=== PATIENT | female | born 1990 | race African-American/Black ===

== ENCOUNTER 2022-01-11 08:09 | Emergency (ER) | payer OTHER, SELFPAY ==
--- NOTE | ~2022-01-11 | XR_ITS ---
EXAMINATION: XR chest 2V DATE: 01/11/2022 08:39 INDICATION: Chest pain. TECHNIQUE: Frontal and lateral views of the chest were obtained. COMPARISON: None. FINDINGS: The chest demonstrates clear lungs without pneumonia, pleural effusion, or pneumothorax. Th e heart size is normal. IMPRESSION: 1. No acute cardiopulmonary disease. Reviewed, dictated and finalized at location [facility].
[2022-01-11 08:15] VITALS: BP 148/96; PULSE 123; RESP 15; TEMP 37; O2SAT 100
--- NOTE | 2022-01-11 08:18 | ECG_ITS ---
Measurements Intervals [place] Rate: 100 P: 14 IA: 122 QRS: 36 QRSD: 77 T: -2 QT: 334 QTc: 432 Interpretive Statements SINUS TACHYCARDIA NONSPECIFIC T-WAVE ABNORMALITY ABNORMAL ECG NO PREVIOUS ECG AVAILABLE FOR COMPARISON Electronically Signed On 01-11-2022 10:32:06 CDT by Parminder Membreno M.D.
[2022-01-11 08:19] VITALS: PULSE 120
[2022-01-11 08:37] LABS: Basophils Percent Auto 0.4 % (0.2-1.2); Eosinophils Percent Auto 0.1 % (0-4.4); Hematocrit 35.5 % (37.0-47.0); Hemoglobin 11.7 g/dL (12.0-15.0); Immature Granulocyte Absolute 0.02 K/mm3 (0.00-0.031); Immature Granulocyte Percent A 0.2 % (0-0.5); Lymphocytes Absolute Auto 1.03 K/mm3 (0.9-3.2); Lymphocytes Percent Auto 10.5 % (18.3-44.2); Mean Corpuscular Hemoglobin 31.2 pg (26-34); Mean Corpuscular Volume 94.7 fl (80-100); Mean Platelet Volume 9.5 fl (7.4-10.4); Monocytes Absolute Auto 0.4 K/mm3 (0.1-0.6); Monocytes Percent Auto 3.8 % (2.6-8.5); Neutrophils Absolute Auto 8.3 K/mm3 (1.3-6.7); Platelet Count Result 322 k/mm3 (150-375); Red Blood Count 3.75 M/mm3 (4.2-5.4); Red Cell Distribution Width 12.5 % (11.5-14.5); White Blood Count 9.8 K/mm3 (4.5-10.0)
[2022-01-11 08:42] LABS: Appearance Urine Clear (Clear); Bilirubin Urine Negative (Negative); Blood Urine Negative (Negative); Color Urine Yellow (Yellow); Glucose Urine UA Negative (Negative); Ketones Urine Negative (Negative); Leukocyte Esterase Ur Negative LEU/UL (Negative); Nitrate Urine Negative (Negative); Protein Urine Trace mg/dL (Negative); Urobilinogen Urine 0.2 mg/dL (<2.0); pH Urine 6.5 (5.0-9.0)
[2022-01-11 08:47] LABS: Add Urine Microscopic? YES; Bacteria Urine Trace /hpf; Mucus Urine Rare /lpf; RBC Urine 0-2 /hpf (0-2); Squamous Epithelial Cell Urine Few /hpf (Few); WBC Urine 0-3 /hpf
[2022-01-11 08:47] LABS: Alanine Aminotransferase 15 U/L (6-35); Albumin Level 4.2 g/dL (3.5-5.1); Alkaline Phosphatase 55 U/L (38-126); Anion Gap 6 mmol/L (8-16); Aspartate Amino Transferase 19 U/L (14-36); Bilirubin,Total 0.1 mg/dL (0.2-1.3); Blood Urea Nitrogen 9 mg/dL (7-17); Calcium 8.6 mg/dL (8.4-10.2); Carbon Dioxide 24 mmol/L (22-30); Chloride 109 mmol/L (98-107); Estimated CRCL calculation 139 ml/min; Estimated Glomerular Filt Rate > 60; Glucose 112 mg/dL (65-110); Potassium 3.9 mmol/L (3.4-5.0); Sodium 139 mmol/L (137-145)
[2022-01-11 08:57] LABS: Amphetamine Screen Urine Negative (Negative); Barbiturate Screen Urine Negative (Negative); Benzodiazepines Screen Urine Negative (Negative); Cannabinoid Screen Urine Positive (Negative); Cocaine Screen Urine Negative (Negative); Methadone Screen Urine Negative (Negative); Opiate Screen Urine Negative (Negative); Phencyclidine Screen Urine Negative (Negative)
[2022-01-11 09:01] VITALS: BP 123/75; PULSE 95; RESP 18; O2SAT 100
[2022-01-11] MEDS: ACETAMINOPHEN 325 MG TABLET 650 MG PO (09:01)
[2022-01-11 09:05] LABS: Troponin I < 0.012 ng/mL (0.000-0.034)
--- NOTE | 2022-01-11 09:29 | ED.GENADULT ---
HPI - General Adult General Chief complaint: Unspecified Stated complaint: CP s/p edible marijuana Time Seen by Provider: 01/11/22 08:16 Source: patient History of Present Illness HPI narrative: Patient presents with chest pain and palpitations. Patient ports she has been trying THC edibles for relaxation. Sometimes when she takes them she gets chest pain and palpitations. She took her Gummies approximately 4 hours ago since then describes right-sided chest pain and palpitations. Current episodes is more severe than her prior episodes so she came into the ER for further evaluation. Pain is achy, constant, no clear aggravating or alleviating factors, no radiation. She also has intermittent palpitations. Given severity of symptoms she was concerned that she may have injured her heart. She reports intermittent shortness of breath. Denies any fevers, cough, congestion, nausea, vomiting. Patient denies recent hospitalizations or surgeries denies prior history of blood clots. Patient denies any family history of cardiac disease. Related Data Allergies Allergy/AdvReac Type Severity Reaction Status Date / Time No Known Allergies Allergy Verified 01/11/22 08:22 Review of Systems Review of Systems: CONSTITUTIONAL: Denies fever, chills, or sweats. EYES: Denies visual changes, redness, or discharge. ENT: Denies rhinorrhea, congestion, sore throat, or otalgia. CARDIOVASCULAR: Reports chest pain palpitations RESPIRATORY: Denies cough or dyspnea. GASTROINTESTINAL: Denies abdominal pain, nausea, vomiting, or diarrhea. GENITOURINARY: Denies dysuria or hematuria. SKIN: Denies rash or itching. MUSCULOSKELETAL: Denies back pain, joint pain, or myalgia. NEUROLOGIC: Denies headache, numbness, dizziness, or weakness. PSYCHIATRIC: Denies anxiety or depression. All systems reviewed & are unremarkable except as noted in HPI and below PMFSH Social History Social History Smoking status: Never smoker Second hand tobacco smoke exposure: No Alcohol intake: current Exam Narrative: GENERAL: Well-appearing, well-nourished, and in no acute distress. HEAD: Normocephalic, atraumatic. EYES: PERRLA and EOMI. ENT: Nares clear, no rhinorrhea or epistaxis. Mucous membranes moist. NECK: Supple. No masses. No JVD CHEST: Clear to auscultation. No respiratory distress. No wheezes rales or rhonchi HEART: Regular tachycardia, no murmur heard. Normal peripheral pulses. ABDOMEN: Soft, nontender, nondistended, normal active bowel sounds. EXTREMITIES: Normal range of motion. No edema. SKIN: Warm, dry, no rash. NEURO: No focal deficits. Alert and oriented x3. PSYCH: Normal mood and affect. Course Reevaluation(s) Reevaluation #1: Patient feeling improved vital signs are improved. Results and plan reviewed with patient. Patient is comfortable outpatient plan. Date: 01/11/22 Time: 09:34 Vital Signs Vital signs: Vital Signs Temperature 37.0 C 01/11/22 08:15 Pulse Rate 123 H 01/11/22 08:15 Respiratory Rate 15 01/11/22 08:15 Blood Pressure 148/96 H 01/11/22 08:15 Pulse Oximetry 100 01/11/22 08:15 Oxygen Delivery Room Air 01/11/22 08:15 Temperature 37.0 C 01/11/22 08:15 Pulse Rate 88 01/11/22 10:19 Respiratory Rate 16 01/11/22 10:19 Blood Pressure 146/94 H 01/11/22 10:19 Pulse Oximetry 100 01/11/22 10:19 Oxygen Delivery Room Air 01/11/22 08:15 Medical Decision Making MDM Narrative Medical decision making narrative: H&P as above, vss, pt looks clinically well, exam reassuring, labs clinically unremarkable, img without acute process, additional labs/img considered, symptomatic relief available as needed, on reevaluation pt continues to looks clinically well. Suspect medication reaction, dns ACS, PE, dissection, pneumothorax. plan to tx/monitor as op w/ pcm f/u findings/plan discussed with pt, pt agree/comfortable with plan, return precautions given Vital
[2022-01-11 10:19] VITALS: BP 146/94; PULSE 88; RESP 16; O2SAT 100
== END 2022-01-11 10:20 | disposition home or self-care (01) ==
PROVIDERS: Emergency Provider Emergency Medicine
DX: R07.9 Chest pain, unspecified (principal); R00.2 Palpitations; T50.905A Adverse effect of unspecified drugs, medicaments and biological substances, initial encounter; R00.0 Tachycardia, unspecified
CPT/HCPCS: 36415; 71046; 80053; 80307; 81001; 84484; 85025; 93005; 96372; 99284; A9270; J1885

== ENCOUNTER 2022-01-11 19:09 | Emergency (ER) | payer OTHER, SELFPAY ==
--- NOTE | 2022-01-11 19:10 | ECG_ITS ---
Measurements Intervals [place] Rate: 92 P: 9 CA: 104 QRS: 45 QRSD: 96 T: 12 QT: 364 QTc: 450 Interpretive Statements SINUS RHYTHM WITH SINUS ARRHYTHMIA WITH SHORT CA INTERVAL COMPARED TO ECG 01/11/2022 08:23:50 SINUS RHYTHM NOW PRESENT SINUS ARRHYTHMIA NOW PRESENT Electronically Signed On 01-12-2022 7:38:16 CDT by Kori Temple MD
--- NOTE | 2022-01-11 19:14 | PC.NURSE ---
per radiology-pt has already had out-pt cxr today. they will cancel one ordered with chest pain protocol
[2022-01-11 19:29] VITALS: BP 153/99; PULSE 73; RESP 16; TEMP 36.9; O2SAT 100
[2022-01-11 19:33] VITALS: PULSE 72; O2SAT 100
[2022-01-11 19:41] VITALS: BP 153/99; PULSE 72; RESP 14; O2SAT 98
--- NOTE | 2022-01-11 19:56 | ED.ANXIETY ---
HPI - Anxiety General Chief Complaint: Chest Pain Stated Complaint: chest pain Time Seen by Provider: 01/11/22 19:15 History of Present Illness HPI narrative: 31-year-old female who was here earlier this morning after she had a bad reaction to adipose presents because she states that she still is feeling uncomfortable, she describes a feeling of chest tightness and palpitations, and she is having trouble calming down and slowing down her breast, and she is feeling cramping and tingling in both hands and feet, as well as some discomfort to her right shoulder. She did try taking some Tylenol at home earlier without any improvement. Related Data Allergies Allergy/AdvReac Type Severity Reaction Status Date / Time No Known Allergies Allergy Verified 01/11/22 08:22 Review of Systems Review of Systems: CONST: No fever. HEENT: No sore throat C/V: Chest tightness RESP: Difficulty breathing GI: Slight nausea : No dysuria. M/S: No joint pain. SKIN: No rash. NEURO: Numbness and tingling in bilateral hands and feet PSYCH: Anxiety PMFSH Past Medical History Medical History (Updated 01/11/22 @ 21:10 by Giovanna Morel MD) Heart palpitations Family History Family History (Updated 01/11/22 @ 19:58 by Giovanna Morel MD) Grandparent Hypertension Social History Social History Smoking status: Never smoker Second hand tobacco smoke exposure: No Alcohol intake: current Exam Narrative: EXAMINATION OF ORGAN SYSTEMS/BODY AREAS: Constitutional: Vital signs per nursing GENERAL: Appears anxious and slightly tearful HEAD: Normal with no signs of head trauma. EYES: EOMI, conjunctiva normal ENT: Hearing grossly intact LUNGS: Tachypnea, clear to auscultation bilaterally HEART: [Regular rate and rhythm] ABD: [Soft], [nontender to palpation] EXT: Normal range of motion, no lower extremity edema or tenderness SKIN: [No rashes or lesions.] NEURO: [Alert and oriented x 3. No focal weakness.] PSYCH: Anxious affect Course Vital Signs Vital signs: Vital Signs Temperature 98.5 F 01/11/22 19:29 Pulse Rate 73 01/11/22 19:29 Respiratory Rate 16 01/11/22 19:29 Blood Pressure 153/99 H 01/11/22 19:29 Pulse Oximetry 100 01/11/22 19:29 Oxygen Delivery Room Air 01/11/22 19:29 Temperature 98.5 F 01/11/22 19:29 Pulse Rate 72 01/11/22 19:41 Respiratory Rate 14 01/11/22 19:41 Blood Pressure 153/99 H 01/11/22 19:41 Pulse Oximetry 98 01/11/22 19:41 Oxygen Delivery Room Air 01/11/22 19:33 MDM - Anxiety MDM Narrative Medical decision making narrative: 31-year-old female for the second time today with anxiety, chest tightness and dyspnea, vital signs normal, exam shows quite anxious appearing patient with otherwise normal cardiopulmonary and neurologic exam, I suspect most likely panic attack, doubt ACS/TX given her age without risk factors, and she did have negative cardiac work-up earlier today, doubt PE as she is PERC negative, doubt pneumothorax with bilateral breath sounds, or pneumonia given normal chest x-ray from this morning. She is given toradol and ativan here with relief of her symptoms but is worried it may start again at home, I did give her scripts for muscle relaxants and hydroxyzine and reassured her she can always return if she feels worse again. Stable for discharge home at this time. Discharge Plan Discharge Clinical Impression: Heart palpitations, Panic attack Patient Disposition: Home, Self-Care Condition: Improved Instructions: Antibiotic Form, Heart Palpitations (DC), Noncardiac Chest Pain (ED), Panic Attack (ED) Additional Instructions: Please followup with your doctor in the next 1-2 days, try taking the medicine for your symptoms. You can always come back if you feel worse. Prescriptions: New hydroxyzine HCl 25 mg tablet 25 mg PO TID PRN (Reason: anxiety) Qty: 30 0RF methocarbamol 750 mg tablet
[2022-01-11] MEDS: LORazepam (*CRX) 1 MG TABLET PO (19:58)
[2022-01-11] MEDS: KETOROLAC 30 MG/ML VIAL (*BKC) IM (20:29)
[2022-01-11 21:32] VITALS: BP 154/88; PULSE 76; RESP 20; O2SAT 100
== END 2022-01-11 21:34 | disposition home or self-care (01) ==
PROVIDERS: Emergency Provider Emergency Medicine
DX: R00.2 Palpitations (principal); F41.0 Panic disorder [episodic paroxysmal anxiety]
CPT/HCPCS: 93005; 96372; 99284; A9270; J1885

== ENCOUNTER 2022-01-30 09:40 | Emergency (ER) | payer OTHER, SELFPAY ==
--- NOTE | ~2022-01-30 | CT_ITS ---
EXAMINATION: CTA chest PE protocol DATE: 01/30/2022 12:09 INDICATION: Shortness of breath since last night TECHNIQUE: Computed tomography angiography (CTA) of the chest was performed with 100 mL Omnipaque-350 intravenous contrast timed to evaluate the pulmonary arteries. Coronal maximum intensity projection 3D-reconstructions were created by the technologist. Automated exposure control and iterative reconst ruction technique were employed. Exam dose: 725.54 mGy-cm total exam DLP. COMPARISON: 01/30/2022 2 view chest FINDINGS: There is diagnostic contrast enhancement of the pulmonary arteries and no evidence of pulmo nary embolism. No thoracic aortic aneurysm or dissection. Normal heart size. No pericardial or pleural effusion. No hilar or mediastinal mass lesion or lymphadenopathy. Diffuse hepatic steatosis. The adrenal glands are normal. Small sliding hiatal hernia. The lungs are clear of infiltrate or consolidation. Included skeletal structures are unremarkable. IMPRESSION: No evidence of pulmonary embolism Hepatic steatosis Reviewed, dictated and finalized at [facility]. Reviewed, dictated and finalized at location A.
--- NOTE | ~2022-01-30 | XR_ITS ---
XR chest 2V DATE: 01/30/2022 10:10 INDICATION: Shortness of breath TECHNIQUE: PA and lateral views COMPARISON: 01/11/2022 PA and lateral chest FINDINGS: Normal heart size. No hilar or mediastinal enlargement. No pulmonary infiltrate or consolid ation, pleural effusion or pulmonary vascular congestion or pneumothorax is detected. Mild levoscoliosis of the thoracic spine. IMPRESSION: No active cardiopulmonary disease Reviewed, dictated and finalized at location A.
--- NOTE | 2022-01-30 09:43 | ECG_ITS ---
Measurements Intervals [place] Rate: 108 P: 61 W[place]: 120 QRS: 63 QRSD: 77 T: 41 QT: 324 QTc: 435 Interpretive Statements SINUS TACHYCARDIA MINIMAL Q WAVES- ANTEROLAT/INF LEADS BASELINE ARTIFACT- I, AVR, AVL, AVF, V5 ABNORMAL ECG Electronically Signed On 01-30-2022 15:13:23 CDT by Willie Campos D.O.
[2022-01-30 09:53] VITALS: BP 136/98; PULSE 120; RESP 20; TEMP 36.3; O2SAT 99
[2022-01-30 10:00] LABS: Basophils Percent Auto 0.4 % (0.2-1.2); Eosinophils Percent Auto 0.4 % (0-4.4); Hematocrit 38.6 % (37.0-47.0); Hemoglobin 13.4 g/dL (12.0-15.0); Immature Granulocyte Absolute 0.02 K/mm3 (0.00-0.031); Immature Granulocyte Percent A 0.3 % (0-0.5); Lymphocytes Absolute Auto 2.44 K/mm3 (0.9-3.2); Lymphocytes Percent Auto 32.8 % (18.3-44.2); Mean Corpuscular HGB Conc 34.7 g/dl (32-36); Mean Corpuscular Hemoglobin 31.7 pg (26-34); Mean Corpuscular Volume 91.3 fl (80-100); Mean Platelet Volume 9.8 fl (7.4-10.4); Monocytes Absolute Auto 0.4 K/mm3 (0.1-0.6); Monocytes Percent Auto 5.4 % (2.6-8.5); Neutrophils Absolute Auto 4.5 K/mm3 (1.3-6.7); Neutrophils Percent Auto 60.7 % (45.5-73.1); Platelet Count Result 383 k/mm3 (150-375); Red Blood Count 4.23 M/mm3 (4.2-5.4); Red Cell Distribution Width 12.4 % (11.5-14.5); White Blood Count 7.4 K/mm3 (4.5-10.0)
[2022-01-30 10:10] LABS: Alanine Aminotransferase 21 U/L (6-35); Albumin Level 4.7 g/dL (3.5-5.1); Alkaline Phosphatase 56 U/L (38-126); Anion Gap 9 mmol/L (8-16); Aspartate Amino Transferase 23 U/L (14-36); Bilirubin,Total 0.2 mg/dL (0.2-1.3); Blood Urea Nitrogen 4 mg/dL (7-17); Calcium 9.2 mg/dL (8.4-10.2); Carbon Dioxide 20 mmol/L (22-30); Chloride 110 mmol/L (98-107); Estimated CRCL calculation 107 ml/min; Estimated Glomerular Filt Rate > 60; Glucose 127 mg/dL (65-110); Potassium 3.4 mmol/L (3.4-5.0); Sodium 139 mmol/L (137-145)
[2022-01-30 10:45] VITALS: BP 148/72; PULSE 86; RESP 18; O2SAT 99
--- NOTE | 2022-01-30 11:35 | ED.SOB ---
HPI - SOB/Dyspnea General Chief Complaint: Shortness of Breath/Dyspnea Stated Complaint: SOB Time Seen by Provider: 01/30/22 11:22 History of Present Illness HPI Narrative: pt returns, she was here 01/11/22 for anxiety sob after eating edibles w/u neg hr up and went home has f/u coming up wiht primary in a month but still having episodes and no more edibles and taking muscle relaxer and hydroxizine which was prescribed and still episodes with facial numbness hr racing and taking home covid test had exposure neg but concerned about this and also says concerned if something else is going on. I reviewed old records given pt has bcp no smoking and not sure if past family h/o dvt's will w/u for pe that wasn't done or thyroid not tested either and add covid, troponin and mag levels with cta. pt fine with this otherwise her home tests are still positive or marijuana she states which I explained will be for at least a month and needs primary f/u for anxiety says less stress in life with new job so ? meds for anxiety vs all just from the edibles if testing neg Related Data Allergies Allergy/AdvReac Type Severity Reaction Status Date / Time No Known Allergies Allergy Verified 01/11/22 08:22 Review of Systems Constitutional: Comments: CONSTITUTIONAL: Denies fever, chills, or sweats. EYES: Denies visual changes, redness, or discharge. ENT: Denies rhinorrhea, congestion, sore throat, or otalgia. CARDIOVASCULAR: Denies chest pain, palpitations, or edema. RESPIRATORY: Denies cough has dyspnea. GASTROINTESTINAL: Denies abdominal pain, nausea, vomiting, or diarrhea. GENITOURINARY: Denies dysuria or hematuria. SKIN: Denies rash or itching. MUSCULOSKELETAL: Denies back pain, joint pain, or myalgia. NEUROLOGIC: Denies headache, has numbness on face, no weakness. PSYCHIATRIC: has anxiety no depression. [facility] Past Medical History Medical History (Updated 01/30/22 @ 13:06 by Vicky Lozano MD) Heart palpitations Family History Family History (Updated 01/11/22 @ 19:58 by Giovanna Morel MD) Grandparent Hypertension Social History Social History Smoking status: Never smoker Second hand tobacco smoke exposure: No Alcohol intake: current Exam Const: Other: APPEARANCE: Well appearing, no pain in distress, well-nourished. obese Head normocephalic atraumtaic. EYES: PERRLA/EOMI, conjunctivae very clear. NOSE: Normal no drainage EARS:TMS clear Jonathan Heller, with good light reflex. THROAT: Pharynx clear, no exudate. NECK: Supple. No adenopathy, no masses. RESPIRATORY: Airway patent, repsirations nonlabored. Clear to auscultation bilaterally, no rales, rhonchi, wheezing. CARDIOVASCULAR: Regular rate and rhythm without murmurs rubs or gallops. ABDOMINAL: Soft, nontender, nondistended, no hepatosplenomegally MUSCULOSKELETAl: Moves all extremities. Strenght/ROM intact, No edema, No calf tenderness. NEURO: Alert. Cranial nerves II through XII intact. Good gait. Good coordination SKIN:: Warm, dry. Normal Color PSYCHIATRIC: Normal affect/mood, normal interaction with parents. Course Course Emergency Course: talked to pt at length about f/u with scheduled appt for chronic anxiety meds adn further outpt w/u given w/u all neg Vital Signs Vital signs: Vital Signs Temperature 36.3 C L 01/30/22 09:53 Pulse Rate 120 H 01/30/22 09:53 Respiratory Rate 20 01/30/22 09:53 Blood Pressure 136/98 H 01/30/22 09:53 Pulse Oximetry 99 01/30/22 09:53 Oxygen Delivery Room Air 01/30/22 09:53 Temperature 36.3 C L 01/30/22 09:53 Pulse Rate 86 01/30/22 10:45 Respiratory Rate 18 01/30/22 10:45 Blood Pressure 148/72 H 01/30/22 10:45 Pulse Oximetry 99 01/30/22 10:45 Oxygen Delivery Room Air 01/30/22 09:53 MDM - SOB/Dyspnea Lab Data Result diagrams: 01/30/22 09:54 01/30/22 09:54 Labs: Lab Results 01/30/22 01/30/22 01/30/22 Range/Units
[2022-01-30 11:58] LABS: INR 1.1
[2022-01-30 11:59] LABS: Partial Thromboplastin Time 27.5 SECONDS (22.3-36.8)
[2022-01-30 12:07] LABS: NT Pro B Type Natriuretic Pept 59 pg/mL (5-100); Troponin I < 0.012 ng/mL (0.000-0.034)
[2022-01-30 12:24] LABS: SARS-CoV-2 RNA PCR Negative
[2022-01-30 13:15] VITALS: BP 132/68; PULSE 76; RESP 18; O2SAT 99
== END 2022-01-30 13:16 | disposition home or self-care (01) ==
PROVIDERS: Emergency Provider Emergency Medicine
DX: F41.9 Anxiety disorder, unspecified (principal); R06.02 Shortness of breath; Z20.822 Contact with and (suspected) exposure to COVID-19
CPT/HCPCS: 36415; 71046; 71275; 80053; 83735; 83880; 84443; 84484; 85025; 85610; 85730; 93005; 99284; C9803; Q9967; U0003; U0005

== ENCOUNTER 2022-02-06 01:27 | Emergency (ER) | payer OTHER, SELFPAY ==
--- NOTE | ~2022-02-06 | XR_ITS ---
EXAMINATION: XR chest 2V DATE: 02/06/2022 04:03 INDICATION: Dyspnea. TECHNIQUE: Frontal and lateral views of the chest were obtained. COMPARISON: Chest 2 views 01/30/2022, chest CT 01/30/2022 FINDINGS: The chest demonstrates clear lungs without pneumonia, pleural effusion, or pneumothorax. Th e heart size is normal. IMPRESSION: 1. No acute cardiopulmonary disease. Reviewed, dictated and finalized at location A.
[2022-02-06 01:30] VITALS: BP 134/93; PULSE 84; RESP 20; TEMP 36.6; O2SAT 100
--- NOTE | 2022-02-06 03:00 | ED.GENADULT ---
HPI - General Adult General Chief complaint: Unspecified Stated complaint: hot flashes since on new meds Time Seen by Provider: 02/06/22 02:38 Source: patient History of Present Illness HPI narrative: Patient presents to the ER with concerns of hot flashes and medication reaction. Patient reports she been seen in the ER multiple times for reaction to edibles as well as anxiety. Follow-up with her primary care doctor on was started on new medications control pills, metformin, propranolol, paroxetine. Reports she has been taking those medications however is noted hot flashes describes sensation of reflux in her chest that radiates up into her neck and face and then she feels warm and occasionally has nausea. Also reports when this episode happens her feet gets cold she is concerned so she came to the ER for evaluation. Patient ports right now she is feeling well denies any active chest pain shortness of breath nausea vomiting or diarrhea. Related Data Home Medications Medication Instructions Recorded Confirmed desogestrel 0.15 mg-ethinyl tablet 02/06/22 estradiol 0.03 mg tablet (Apri) metformin 500 mg tablet tablet 02/06/22 paroxetine HCl 10 mg tablet tablet PO 02/06/22 propranolol 10 mg tablet tablet 02/06/22 Allergies Allergy/AdvReac Type Severity Reaction Status Date / Time No Known Allergies Allergy Verified 02/06/22 03:21 Review of Systems Review of Systems: CONSTITUTIONAL: Denies fever, chills, or sweats. EYES: Denies visual changes, redness, or discharge. ENT: Denies rhinorrhea, congestion, sore throat, or otalgia. CARDIOVASCULAR: Denies chest pain, palpitations, or edema. RESPIRATORY: Denies cough or dyspnea. GASTROINTESTINAL: Denies abdominal pain, nausea, vomiting, or diarrhea. GENITOURINARY: Denies dysuria or hematuria. SKIN: Denies rash or itching. MUSCULOSKELETAL: Denies back pain, joint pain, or myalgia. NEUROLOGIC: Denies headache, numbness, dizziness, or weakness. PSYCHIATRIC: Denies anxiety or depression. All systems reviewed & are unremarkable except as noted in HPI and below PMFSH Past Medical History Medical History Heart palpitations Family History Family History Grandparent Hypertension Social History Social History Smoking status: Never smoker Second hand tobacco smoke exposure: No Alcohol intake: current Exam Narrative: GENERAL: Well-appearing, well-nourished, and in no acute distress. HEAD: Normocephalic, atraumatic. EYES: PERRLA and EOMI. ENT: Nares clear, no rhinorrhea or epistaxis. Mucous membranes moist. NECK: Supple. No masses. No JVD CHEST: Clear to auscultation. No respiratory distress. No wheezes rales or rhonchi HEART: Regular rate and rhythm. No murmur heard. Normal peripheral pulses. ABDOMEN: Soft, nontender, nondistended, normal active bowel sounds. EXTREMITIES: Normal range of motion. No edema. SKIN: Warm, dry, no rash. NEURO: No focal deficits. Alert and oriented x3. PSYCH: Normal mood and affect. Course Reevaluation(s) Reevaluation #1: Patient resting comfortably results and plan reviewed with patient. Patient is comfortable outpatient plan. Date: 02/06/22 Time: 04:08 Vital Signs Vital signs: Vital Signs Temperature 36.6 C 02/06/22 01:30 Pulse Rate 84 02/06/22 01:30 Respiratory Rate 20 02/06/22 01:30 Blood Pressure 134/93 H 02/06/22 01:30 Pulse Oximetry 100 02/06/22 01:30 Oxygen Delivery Room Air 02/06/22 01:30 Temperature 36.6 C 02/06/22 01:30 Pulse Rate 77 02/06/22 03:22 Respiratory Rate 18 02/06/22 03:22 Blood Pressure 116/80 02/06/22 03:22 Pulse Oximetry 98 02/06/22 03:22 Oxygen Delivery Room Air 02/06/22 01:30 Medical Decision Making MDM Narrative Medical decision making narrative: H&P as above, vss, pt loo
[2022-02-06 03:08] LABS: Basophils Percent Auto 0.5 % (0.2-1.2); Eosinophils Absolute Auto 0.1 K/mm3 (0-0.3); Eosinophils Percent Auto 0.8 % (0-4.4); Hematocrit 40.1 % (37.0-47.0); Hemoglobin 13.3 g/dL (12.0-15.0); Immature Granulocyte Absolute 0.02 K/mm3 (0.00-0.031); Immature Granulocyte Percent A 0.3 % (0-0.5); Lymphocytes Absolute Auto 2.44 K/mm3 (0.9-3.2); Mean Corpuscular HGB Conc 33.2 g/dl (32-36); Mean Corpuscular Hemoglobin 30.8 pg (26-34); Mean Corpuscular Volume 92.8 fl (80-100); Mean Platelet Volume 9.9 fl (7.4-10.4); Monocytes Absolute Auto 0.4 K/mm3 (0.1-0.6); Monocytes Percent Auto 5.8 % (2.6-8.5); Neutrophils Absolute Auto 4.6 K/mm3 (1.3-6.7); Neutrophils Percent Auto 60.6 % (45.5-73.1); Platelet Count Result 347 k/mm3 (150-375); Red Blood Count 4.32 M/mm3 (4.2-5.4); Red Cell Distribution Width 11.9 % (11.5-14.5); White Blood Count 7.6 K/mm3 (4.5-10.0)
[2022-02-06 03:22] VITALS: BP 116/80; PULSE 77; RESP 18; O2SAT 98
[2022-02-06 03:24] LABS: Alanine Aminotransferase 36 U/L (6-35); Albumin Level 4.7 g/dL (3.5-5.1); Alkaline Phosphatase 52 U/L (38-126); Anion Gap 11 mmol/L (8-16); Aspartate Amino Transferase 28 U/L (14-36); Bilirubin,Total 0.3 mg/dL (0.2-1.3); Blood Urea Nitrogen 8 mg/dL (7-17); Calcium 9.2 mg/dL (8.4-10.2); Carbon Dioxide 23 mmol/L (22-30); Chloride 103 mmol/L (98-107); Estimated CRCL calculation 113 ml/min; Estimated Glomerular Filt Rate > 60; Glucose 93 mg/dL (65-110); Potassium 3.5 mmol/L (3.4-5.0); Sodium 137 mmol/L (137-145)
== END 2022-02-06 04:19 | disposition home or self-care (01) ==
PROVIDERS: Emergency Provider Emergency Medicine
DX: R23.2 Flushing (principal); R00.2 Palpitations; Z79.84 Long term (current) use of oral hypoglycemic drugs
CPT/HCPCS: 36415; 71046; 80053; 84443; 85025; 99283

== ENCOUNTER 2022-02-12 05:20 | Emergency (ER) | payer OTHER, SELFPAY ==
[2022-02-12 05:24] VITALS: BP 127/75; PULSE 116; RESP 18; TEMP 36.3; O2SAT 99
[2022-02-12 05:31] VITALS: O2SAT 99
--- NOTE | 2022-02-12 05:55 | ECG_ITS ---
Measurements Intervals [place] Rate: 76 P: 22 MS: 119 QRS: 39 QRSD: 88 T: -7 QT: 361 QTc: 407 Interpretive Statements SINUS RHYTHM WITH SHORT [place] INTERVAL MINIMAL Q WAVES- INFERIOR LEADS NONSPECIFIC T-WAVE ABNORMALITY- INFERIOR LEADS BASELINE ARTIFACT- I, II, AVR, AVF, V1 BORDERLINE ECG Electronically Signed On 02-12-2022 9:44:58 CDT by Willie Campos D.O.
--- NOTE | 2022-02-12 06:00 | ED.GENADULT ---
HPI - General Adult General Chief complaint: Shortness of Breath/Dyspnea Stated complaint: dehydrated , diff breathing History of Present Illness HPI narrative: Patient a 31-year-old female who presents the emergency department with chief complaint of feeling anxious and possibly being dehydrated. Patient states that ever since and the middle of last month she has been feeling anxious since she took a dose of edibles. The patient states that she has been getting palpitations and feels as though her heart is pounding very hard since her primary doctor started her on propanolol and then they have been transitioning her to different SSRIs that she can tolerate. Patient denies suicidal or homicidal ideation states that she thinks she is dehydrated patient reports symptoms or not worsened by anything or they improved by anything. Related Data Home Medications Medication Instructions Recorded Confirmed desogestrel 0.15 mg-ethinyl tablet 02/06/22 estradiol 0.03 mg tablet (Apri) metformin 500 mg tablet tablet 02/06/22 paroxetine HCl 10 mg tablet tablet PO 02/06/22 propranolol 10 mg tablet tablet 02/06/22 Allergies Allergy/AdvReac Type Severity Reaction Status Date / Time No Known Allergies Allergy Verified 02/06/22 03:21 Review of Systems Review of Systems: A 10 system review of systems was completed on the patient and is negative except for what is stated in the HPI. Nursing and ancillary documentation was reviewed. [facility] Past Medical History Medical History Heart palpitations Family History Family History Grandparent Hypertension Social History Social History Smoking status: Never smoker Second hand tobacco smoke exposure: No Alcohol intake: current Exam Narrative: GENERAL: Well-appearing, well-nourished, and in no acute distress. HEAD: Normocephalic, atraumatic. EYES: PERRLA and EOMI. ENT: Nares clear, no rhinorrhea or epistaxis. Mucous membranes moist. NECK: Supple. CHEST: Clear to auscultation. No respiratory distress. HEART: Regular rate and rhythm. No murmur heard. Normal peripheral pulses. ABDOMEN: Soft, nontender, nondistended, normal active bowel sounds. EXTREMITIES: Normal range of motion. No edema. SKIN: Warm, dry, no rash. NEURO: No focal deficits. Alert and oriented x3. PSYCH: Normal mood and affect. Course Vital Signs Vital signs: Vital Signs Temperature 36.3 C L 02/12/22 05:24 Pulse Rate 116 H 02/12/22 05:24 Respiratory Rate 18 02/12/22 05:24 Blood Pressure 127/75 02/12/22 05:24 Pulse Oximetry 99 02/12/22 05:24 Oxygen Delivery Room Air 02/12/22 05:24 Temperature 36.3 C L 02/12/22 05:24 Pulse Rate 64 02/12/22 06:49 Respiratory Rate 15 02/12/22 06:49 Blood Pressure 117/73 02/12/22 06:49 Pulse Oximetry 100 02/12/22 06:49 Oxygen Delivery Room Air 02/12/22 05:31 Medical Decision Making Vital Signs Vital Signs: Vital Signs Temperature 36.3 C L 02/12/22 05:24 Pulse Rate 116 H 02/12/22 05:24 Respiratory Rate 18 02/12/22 05:24 Blood Pressure 127/75 02/12/22 05:24 Pulse Oximetry 99 02/12/22 05:24 Oxygen Delivery Room Air 02/12/22 05:24 Temperature 36.3 C L 02/12/22 05:24 Pulse Rate 64 02/12/22 06:49 Respiratory Rate 15 02/12/22 06:49 Blood Pressure 117/73 02/12/22 06:49 Pulse Oximetry 100 02/12/22 06:49 Oxygen Delivery Room Air 02/12/22 05:31 Lab Data Result diagrams: 02/12/22 06:03 02/12/22 06:03 Labs: Lab Results 02/12/22 02/12/22 02/12/22 Range/Units 06:03 06:03 06:03 WBC 6.7 (4.5-10.0) K/mm3 RBC 4.03 L (4.2-5.4) M/mm3 Hgb 12.4 (12.0-15.0) g/dL Hct 37.3 (37.0-47.0) % MCV 92.6 (80-100) fl MCH 30.8 (26-34) pg MCHC 33.2 (
[2022-02-12] MEDS: SODIUM CHLORIDE 0.9% IV 1,000 ML 999 ML IV CONT (06:11)
[2022-02-12 06:18] LABS: Appearance Urine Clear (Clear); Bilirubin Urine 2+ (Negative); Blood Urine Negative (Negative); Color Urine Yellow (Yellow); Glucose Urine UA Negative (Negative); Ketones Urine 4+ mg/dL (Negative); Leukocyte Esterase Ur Negative LEU/UL (Negative); Nitrate Urine Negative (Negative); Protein Urine 1+ mg/dL (Negative); Specific Grav Ur 1.025 (1.001-1.035)
[2022-02-12 06:21] LABS: Bacteria Urine Trace /hpf; Mucus Urine Heavy /lpf; Squamous Epithelial Cell Urine Few /hpf (Few)
[2022-02-12 06:26] LABS: Basophils Percent Auto 0.6 % (0.2-1.2); Eosinophils Absolute Auto 0.1 K/mm3 (0-0.3); Eosinophils Percent Auto 0.7 % (0-4.4); Hematocrit 37.3 % (37.0-47.0); Hemoglobin 12.4 g/dL (12.0-15.0); Immature Granulocyte Absolute 0.01 K/mm3 (0.00-0.031); Immature Granulocyte Percent A 0.1 % (0-0.5); Lymphocytes Absolute Auto 1.91 K/mm3 (0.9-3.2); Lymphocytes Percent Auto 28.4 % (18.3-44.2); Mean Corpuscular HGB Conc 33.2 g/dl (32-36); Mean Corpuscular Hemoglobin 30.8 pg (26-34); Mean Corpuscular Volume 92.6 fl (80-100); Mean Platelet Volume 10.7 fl (7.4-10.4); Monocytes Absolute Auto 0.5 K/mm3 (0.1-0.6); Monocytes Percent Auto 7.6 % (2.6-8.5); Neutrophils Absolute Auto 4.2 K/mm3 (1.3-6.7); Neutrophils Percent Auto 62.6 % (45.5-73.1); Platelet Count Result 277 k/mm3 (150-375); Red Blood Count 4.03 M/mm3 (4.2-5.4); Red Cell Distribution Width 11.9 % (11.5-14.5); White Blood Count 6.7 K/mm3 (4.5-10.0)
[2022-02-12 06:34] LABS: Alanine Aminotransferase 38 U/L (6-35); Albumin Level 4.5 g/dL (3.5-5.1); Alkaline Phosphatase 52 U/L (38-126); Anion Gap 13 mmol/L (8-16); Aspartate Amino Transferase 33 U/L (14-36); Bilirubin,Total 0.3 mg/dL (0.2-1.3); Blood Urea Nitrogen 7 mg/dL (7-17); Carbon Dioxide 20 mmol/L (22-30); Chloride 104 mmol/L (98-107); Estimated CRCL calculation 110 ml/min; Estimated Glomerular Filt Rate > 60; Glucose 99 mg/dL (65-110); Magnesium 1.7 mg/dL (1.6-2.3); Potassium 3.3 mmol/L (3.4-5.0); Sodium 137 mmol/L (137-145)
[2022-02-12 06:36] LABS: Add Urine Microscopic? YES
[2022-02-12 06:45] LABS: Troponin I < 0.012 ng/mL (0.000-0.034)
[2022-02-12 06:49] VITALS: BP 117/73; PULSE 64; RESP 15; O2SAT 100
[2022-02-12 07:10] VITALS: BP 119/72; PULSE 80; RESP 16; O2SAT 100
== END 2022-02-12 07:09 | disposition home or self-care (01) ==
PROVIDERS: Emergency Provider Emergency Medicine; PCP Internal Medicine
DX: R00.2 Palpitations (principal); Z79.84 Long term (current) use of oral hypoglycemic drugs
CPT/HCPCS: 36415; 80053; 81001; 81025; 83735; 84484; 85025; 93005; 96360; 99284; J7030

== ENCOUNTER 2022-03-28 03:31 | Emergency (ER) | payer OTHER, SELFPAY ==
[2022-03-28 03:38] VITALS: BP 146/82; PULSE 101; RESP 20; TEMP 36.2; O2SAT 100
--- NOTE | 2022-03-28 03:57 | ED.GENADULT ---
HPI - General Adult General Chief complaint: Unspecified Stated complaint: Right calf swelling and numbness/ pressure in head Time Seen by Provider: 03/28/22 03:47 History of Present Illness HPI narrative: Patient 31-year-old female who presents the emergency department with chief complaint of multiple issues. The patient reports that she has had a sore throat and feeling as though her tongue is swelling patient also reports that she is had a tingling sensation in her right calf and also the right calf feels swollen patient also reports that she has had a headache ear pressure and has nausea and photophobia and a headache. Patient reports no focal neurological deficits reports no trauma reports no vomiting or diarrhea the patient denies chest pain. The patient reports she has history of anxiety and reports that her primary doctor has recently tapered her off of sertraline about 2 weeks ago. The patient states that her ears feel that though she needs to pop her ears. The patient states that her tongue feels as though it swollen it hurts whenever she swallows. The patient denies stridor reports no change in her voice. Related Data Home Medications Medication Instructions Recorded Confirmed desogestrel 0.15 mg-ethinyl tablet 02/06/22 estradiol 0.03 mg tablet (Apri) metformin 500 mg tablet tablet 02/06/22 paroxetine HCl 10 mg tablet tablet PO 02/06/22 propranolol 10 mg tablet tablet 02/06/22 Allergies Allergy/AdvReac Type Severity Reaction Status Date / Time No Known Allergies Allergy Verified 03/28/22 03:41 Review of Systems Review of Systems: A 10 system review of systems was completed on the patient and is negative except for what is stated in the HPI. Nursing and ancillary documentation was reviewed. PMFSH Past Medical History Medical History Heart palpitations Family History Family History Grandparent Hypertension Social History Social History Smoking status: Never smoker Second hand tobacco smoke exposure: No Alcohol intake: current Exam Narrative: GENERAL: Well-appearing, well-nourished, and in no acute distress. HEAD: Normocephalic, atraumatic. EYES: PERRLA and EOMI. ENT: Nares clear, no rhinorrhea or epistaxis. Mucous membranes moist. NECK: Supple. CHEST: Clear to auscultation. No respiratory distress. HEART: Regular rate and rhythm. No murmur heard. Normal peripheral pulses. ABDOMEN: Soft, nontender, nondistended, normal active bowel sounds. EXTREMITIES: Normal range of motion. No edema. SKIN: Warm, dry, no rash. NEURO: No focal deficits. Alert and oriented x3. PSYCH: Normal mood and affect. Course Vital Signs Vital signs: Vital Signs Temperature 36.2 C L 03/28/22 03:38 Pulse Rate 101 H 03/28/22 03:38 Respiratory Rate 20 03/28/22 03:38 Blood Pressure 146/82 H 03/28/22 03:38 Pulse Oximetry 100 03/28/22 03:38 Oxygen Delivery Room Air 03/28/22 03:38 Temperature 36.2 C L 03/28/22 03:38 Pulse Rate 63 03/28/22 05:07 Respiratory Rate 16 03/28/22 05:07 Blood Pressure 146/82 H 03/28/22 03:38 Pulse Oximetry 98 03/28/22 05:07 Oxygen Delivery Room Air 03/28/22 03:38 Medical Decision Making Vital Signs Vital Signs: Vital Signs Temperature 36.2 C L 03/28/22 03:38 Pulse Rate 101 H 03/28/22 03:38 Respiratory Rate 20 03/28/22 03:38 Blood Pressure 146/82 H 03/28/22 03:38 Pulse Oximetry 100 03/28/22 03:38 Oxygen Delivery Room Air 03/28/22 03:38 Temperature 36.2 C L 03/28/22 03:38 Pulse Rate 63 03/28/22 05:07 Respiratory Rate 16 03/28/22 05:07 Blood Pressure 146/82 H 03/28/22 03:38 Pulse Oximetry 98 03/28/22 05:07 Oxygen Delivery Room Air 03/28/22 03:38 Lab Data Result diagrams: 03/28/22 04:36 08
[2022-03-28] MEDS: SODIUM CHLORIDE 0.9% IV 1,000 ML 999 ML IV CONT (04:26)
[2022-03-28] MEDS: METOCLOPRAMIDE HCL INJ 10 MG/2 ML VIAL IV PUSH (04:26)
[2022-03-28] MEDS: diphenhydrAMINE HCl INJ 50 MG/ML VIAL IV PUSH ×2 (04:26→04:49)
--- NOTE | 2022-03-28 04:45 | PC.NURSE ---
Pt called this RN to room with c/o being unable to sit still, feeling restless. EDP notified.
[2022-03-28 04:47] LABS: Basophils Percent Auto 0.3 % (0.2-1.2); Eosinophils Absolute Auto 0.1 K/mm3 (0-0.3); Eosinophils Percent Auto 0.9 % (0-4.4); Hematocrit 40.8 % (37.0-47.0); Hemoglobin 13.2 g/dL (12.0-15.0); Immature Granulocyte Absolute 0.02 K/mm3 (0.00-0.031); Immature Granulocyte Percent A 0.2 % (0-0.5); Lymphocytes Absolute Auto 2.58 K/mm3 (0.9-3.2); Lymphocytes Percent Auto 29.6 % (18.3-44.2); Mean Corpuscular HGB Conc 32.4 g/dl (32-36); Mean Corpuscular Hemoglobin 31.4 pg (26-34); Mean Corpuscular Volume 97.1 fl (80-100); Mean Platelet Volume 9.9 fl (7.4-10.4); Monocytes Absolute Auto 0.5 K/mm3 (0.1-0.6); Monocytes Percent Auto 6.2 % (2.6-8.5); Neutrophils Absolute Auto 5.5 K/mm3 (1.3-6.7); Neutrophils Percent Auto 62.8 % (45.5-73.1); Platelet Count Result 297 k/mm3 (150-375); Red Cell Distribution Width 13.2 % (11.5-14.5); White Blood Count 8.7 K/mm3 (4.5-10.0)
[2022-03-28 04:50] VITALS: PULSE 106; RESP 18; O2SAT 97
[2022-03-28 04:54] LABS: Bacteria Urine Trace /hpf; Mucus Urine Few /lpf; RBC Urine 0-2 /hpf (0-2); Squamous Epithelial Cell Urine Occasional /hpf (Few); WBC Urine 0-3 /hpf
[2022-03-28 04:55] LABS: Appearance Urine Clear (Clear); Bilirubin Urine Negative (Negative); Blood Urine Negative (Negative); Color Urine Yellow (Yellow); Glucose Urine UA Negative (Negative); Ketones Urine 2+ mg/dL (Negative); Leukocyte Esterase Ur Negative LEU/UL (Negative); Nitrate Urine Negative (Negative); Protein Urine Negative (Negative); Urobilinogen Urine 0.2 mg/dL (<2.0); pH Urine 5.5 (5.0-9.0)
[2022-03-28 04:56] LABS: Add Urine Microscopic? YES
[2022-03-28 05:01] LABS: Alanine Aminotransferase 30 U/L (6-35); Albumin Level 4.3 g/dL (3.5-5.1); Alkaline Phosphatase 50 U/L (38-126); Anion Gap 14 mmol/L (8-16); Aspartate Amino Transferase 23 U/L (14-36); Bilirubin,Total 0.4 mg/dL (0.2-1.3); Blood Urea Nitrogen 7 mg/dL (7-17); Calcium 9.6 mg/dL (8.4-10.2); Carbon Dioxide 23 mmol/L (22-30); Chloride 102 mmol/L (98-107); Estimated CRCL calculation 107 ml/min; Estimated Glomerular Filt Rate > 60; Glucose 93 mg/dL (65-110); Potassium 3.6 mmol/L (3.4-5.0); Sodium 139 mmol/L (137-145)
[2022-03-28 05:07] VITALS: PULSE 63; RESP 16; O2SAT 98
[2022-03-28 05:22] LABS: SARS-CoV-2 RNA PCR Negative
--- NOTE | 2022-03-28 06:24 | PC.NURSE ---
This RN tried to wake up the patient to discharge this patient. patient unable to wake up enough for this RN to go over discharge packet. Patient very sleepy and unable to speak a full sentence. This RN notified ED charge and EDP queenie.
[2022-03-28 07:15] VITALS: BP 134/90; PULSE 62; RESP 16; O2SAT 100
== END 2022-03-28 07:15 | disposition home or self-care (01) ==
PROVIDERS: Emergency Provider Emergency Medicine; PCP Internal Medicine
DX: R51.9 Headache, unspecified (principal); M79.604 Pain in right leg; Z20.822 Contact with and (suspected) exposure to COVID-19
CPT/HCPCS: 36415; 80053; 81001; 81025; 85025; 87081; 87880; 96361; 96374; 96375; 99284; C9803; J1200; J2765; J7030; U0003; U0005

== ENCOUNTER 2022-03-28 08:08 | Outpatient (CLI) | payer OTHER, SELFPAY ==
--- NOTE | ~2022-03-28 | US_ITS ---
EXAMINATION: US venous doppler LE RT DATE: 03/28/2022 09:03 INDICATION: Right lower limb pain and swelling. TECHNIQUE: Grayscale ultrasound images without and with compression and Doppler ultrasound images of the right lower extremity veins were obtained. COMPARISON: None. FINDINGS: The visualized portions of right common femoral vein, profunda (deep) femoral vein, femoral vein, pop liteal vein, peroneal veins, posterior tibial veins, and greater saphenous vein outflow are patent. IMPRESSION: 1. No deep venous thrombosis. Reviewed, dictated and finalized at location A.
== END 2022-03-28 08:09 | disposition home or self-care (01) ==
PROVIDERS: PCP Internal Medicine; Visit Provider Emergency Medicine
DX: M79.661 Pain in right lower leg (principal)
CPT/HCPCS: 93971